=== PATIENT | male | born 1990 | race Caucasian/White ===

== ENCOUNTER 2017-01-03 17:52 | Emergency (ER) | payer SELFPAY ==
[~2017-01-03] VITALS: Ht 185.4 cm; Wt 84.1 kg
--- OUTSIDE RECORDS SUMMARY | 2017-01-03 18:00 | XMS REPORT | Continuity Of Care Document ---
Author Author [facility] Organization [facility] Address [address] [place] [address] Phone Care Team Providers Care Casino Runner Name Role Phone Girish RENDON MD Unavailable UNASSIGNED, PHYSICIAN Unavailable Unavailable STACIA MCDOWELL, M FHCP Dmitriy BINGHAM MD AT KATE BAILON DO) Unavailable Results Results No results recorded. Allergies and Adverse Reactions Allergies and Adverse Reactions Patient Unit Number: [id number] Agent Type Reaction Severity Status CEFACLOR Drug Allergy Unknown Mild Active Problem List Problem List Visit/Account #[id number] (July 23, 2016 8:59pm - July 23, 2016 10: 04pm) Acute Problems: Code/Condition Comments Documented Start Date Documented Resolved Date Code (s) Dental abscess ICD10: K04.7 Dental abscess ICD9: 522.5 Dental abscess SNOMED: 080281704 Dental abscess Plan of Care Plan Of Care Visit/Account #[id number] (July 23, 2016 8:59pm - July 23, 2016 10: 04pm) Patient Instructions supply person your Augmentin tomorrow morning and restart Use 800mg ibuprofen every 6-8 hours for pain Use [place] for pain not controlled by ibuprofen Follow-up with your dentist on Wednesday Vital Signs Vital Signs Visit/Account #[id number] (July 23, 2016 8:59pm - July 23, 2016 10: 04pm) Sign First Result Last Result Code(s) Body Mass Index Body Mass Index (BMI): 27.0 kg/m2 On July 23, 2016 8:56pm 72697-9 BMI (body mass index) Body Mass Index as a Calculated Value 27.2 kg/m2 On July 23, 2016 8:56pm 88428-5 BMI (body mass index) Body Surface Area as a Calculated Value 2.13 m2 On July 23, 2016 8:56pm 3140-1 BSA (body surface area) Height (Feet/Inches) 6 [ft_us] On July 23, 2016 8:56pm Temperature in Fahrenheit Temperature (Fahrenheit): 98.0 [degF] On July 23, 2016 8:56pm Temperature (Fahrenheit): 98 [degF] On July 23, 2016 9:56pm 8310-5 Body Temperature Weight in Kilograms Weight (Kilograms): 90.91 kg On July 23, 2016 8:56pm 3141-9 Weight Measured 08393-2 Body weight measured in kilograms Functional Status Functional and Cognitive Status No Functional Status Data Medications Inpatient/Ordered Medications - Medications administered during hospital visit Visit/Account #[id number] (July 23, 2016 8:59pm - July 23, 2016 10: 04pm) Medication Route Sig/Schedule Precondition/Indication Comments/ Instructions Codes DECADRON INJ(DEXAMETHASONE SOD PHOS) 10 MG/ML INJECTION Dose: 1 ML INTRAMUSC NOW Dexamethasone 10 MG/ML Injectable Solution (RxNorm): 931180 DECADRON INJ (DEXAMETHASONE SOD PHOS) NDC: 90091079062 AUGMENTIN(AMOXICILLIN/CLAVULANATE K) 875 MG TAB Dose: 875 MG ORAL NOW Label Comments: TAKE WITH FOOD OR MILK Amoxicillin 875 MG / Clavulanate 125 MG Oral Tablet (RxNorm): 182451 AUGMENTIN (AMOXICILLIN/CLAVULANATE K) NDC: 43375960425 ZOFRAN ODT(ONDANSETRON HCL) 4 MG TAB Dose: 4 MG ORAL NOW Label Comments: MAY INCREASE FALL RISK Ondansetron 4 MG Disintegrating Oral Tablet (RxNorm): 824624 ZOFRAN ODT (ONDANSETRON HCL) NDC: 06818413132 NORCO 10-325(HYDROcodone BIT/ACETAMINOPHEN) 1 TAB TAB Dose: 1 TAB ORAL NOW Label Comments: <<may be substituted for 10/500>> REC MAX DAILY DOSE ACETAMINOPHEN: 4000 MG/24 HR MAY INCREASE FALL RISK Acetaminophen 325 MG / Hydrocodone Bitartrate 10 MG Oral Tablet (RxNorm): 956025 NORCO 10-325 (HYDROcodone BIT/ACETAMINOPHEN) NDC: 64775777634 Discharge Medications - Medications that patient should continue to take. Review with physician Visit/Account #[id number] (July 23, 2016 8:59pm - July 23, 2016 10: 04pm) Medication Route Sig/Schedule Precondition/Indication Comments/ Instructions Codes NORCO 5-325 TABLET(HYDROcodone BIT/ACETAMINOPHEN) 1 TAB TABLET Dose: 1-2 TAB ORAL EVERY 4 HOURS PAIN Rx Instructions: 1-2 TAB Acetaminophen 325 MG / Hydrocodone Bitartrate 5 MG Oral Tablet (RxNorm): 999876 NORCO 5-325 TABLET (HYDROcodone BIT/ACETAMINOPHEN) NDC: 38347832305 AUGMENTIN 875-125(AMOXICILLIN/CLAVULANATE K) 1 EACH TABLET Dose: 875 MG ORAL TWICE A DAY Amoxicillin 875 MG / Clavulanate 125 MG Oral Tablet [Augmentin] (RxNorm): 387694 AUGMENTIN 875-125 (AMOXICILLIN/CLAVULANATE K) NDC: 72406312727 History Of Encounters Encounters Visit/Account #[id number] (July 23, 2016 8:59pm - July 23, 2016 10: 04pm) Account Status Physican Of Record Reason For Visit Visit Diagnosis Start Date/Time Stop Date/Time ER ANIVAL BINGHAM MD [place] K08.89: OTHER SPECIFIED DISORDERS OF TEETH AND SUPPORTING STRUCTURES ICD10 Jul 23, 2016 8:59pm Jul 23, 2016 10:04pm History of Procedures Procedure List No procedures recorded. Discharge Instructions Discharge Instructions Visit/Account #[id number] (July 23, 2016 8:59pm - July 23, 2016 10: 04pm) DISCHARGE INSTRUCTIONS Physician Documentation Social History Social History No Social History Data. Immunizations Immunizations Patient Unit Number: [id number] Immunizations No immunizations recorded.
[2017-01-03] MEDS ORDERED: ALB0.5V INH (18:09)
[2017-01-03] MEDS ORDERED: ED- AMOXICILLIN/CLAVULONATE 875MG-125MG (AUGMENTIN) 3 TABLETS/BTL PO ONE (18:40)
[2017-01-03] MEDS ORDERED: ED- HYDROcodone/ACETAMINOPHEN 5MG/325MG (NORCO) 6 TABLETS/BTL PO ONE (18:40)
[2017-01-03] MEDS ORDERED: KETOROLAC 60 MG/2 ML (TORADOL) VIAL IM ONE (18:40)
[2017-01-03] MEDS ORDERED: AMOX1TAB12 PO (18:48)
[2017-01-03] MEDS ORDERED: HYDR-3702 PO (18:48)
--- NOTE | 2017-01-03 18:55 | NUR ---
Report received, care assumed.
--- NOTE | 2017-01-03 19:08 | NUR ---
Pt dismissed to home with instructions, prepacks and prescription. Pt stated his understanding. Informed pt of prescription called to pharmacy also. Pt left ambulatory to POV.
[2017-01-03 19:10] VITALS: BP 124/88
== END 2017-01-03 19:08 | disposition home or self-care (01) ==
LOC: ED 17:57
DX: K02.9 Dental caries, unspecified (principal)
CPT/HCPCS: 96372; 99282; J1885; 99283